=== PATIENT | female | born 1995 | race Caucasian/White ===

== ENCOUNTER → 2021-07-16 10:14 | Outpatient (CLI) | payer OTHER, SELFPAY ==
[2021-07-16 10:43] LABS: COVID19 -Nasal RAPID Negative (Negative)
== END ==
PROVIDERS: Referring Provider Obstetrics & Gynecology; Visit Provider Obstetrics & Gynecology
DX: Z01.812 Encounter for preprocedural laboratory examination (principal); Z20.822 Contact with and (suspected) exposure to COVID-19
CPT/HCPCS: 87635

== ENCOUNTER 2021-07-17 10:29 | Day surgery (SDC) | payer OTHER, SELFPAY ==
[2021-07-13 08:44] VITALS: BMI 27.3
--- NOTE | 2021-07-17 | PATH_ITS ---
[facility] Accession Number: [id number] . 01 Material submitted: . vulva - LEFT BARTHOLIN'S CYST . 01 Diagnosis: Left Bartholin Cyst, Excision: Histologic features consistent with benign Bartholin duct cyst. No malignancy identified. MRV 07/23/2021 1359 Local . 01 Electronically signed: . Catina Monterroso MD, Pathologist NPI- [id number] . 01 Gross description: . LEFT BARTHOLIN'S CYST: Received in formalin is 1 fragment of davis soft tissue measuring 3.0 x 1.2 x 0.6 cm. Tissue is inked. Specimen is sectioned and submitted in surgical device sales representative sections in 1 cassette. /MUNA 07/19/2021 1950 Local . 01 Pathologist provided ICD-10: N75.0 . 01 CPT . 581742 Specimen Comment: A courtesy copy of this report has been sent to [phone] Performed at: 01 [facility] [address] [place] [address] Suite [facility], [place], [place] [id number] MD Duncan Foss MD Phone: [phone]
[2021-07-17 10:48] VITALS: BP 106/64; PULSE 82; RESP 20; TEMP 36.7; O2SAT 98; BMI 27.3
[2021-07-17] MEDS: LACTATED RINGERS 1,000 ML 42 ML IV (11:02)
--- NOTE | 2021-07-17 11:02 | SUR.PREOP ---
Advised patient that surgery delayed by approximately one hour due to unforeseen circumstances. V/U. No needs voiced at this time; call light in place. Lights turned down for comfort.
--- NOTE | 2021-07-17 13:05 | PM.HP.1 ---
History of Present Illness History of Present Illness Date Patient Seen: 07/17/21 Time Patient Seen: 13:10 Chief complaint: SDC Narrative: Patient is a 25-year-old 0 with recurrent left Bartholin's cyst/abscess. She is here for a left Bartholin's cyst excision. Patient History Medical History Former smoker Family & Social History Social History: household members family,friend(s) Tobacco & Substance use: Tobacco type e-cigarettes Smoking Status Former smoker alcohol intake frequency holiday/special occasion Substance Use Type does not use Meds Home Medications and Allergies Home Medications Medication Instructions Recorded Confirmed Type cetirizine 10 mg capsule (Zyrtec) 10 mg PO DAILY PRN 06/11/21 07/17/21 History fluticasone propionate 50 2 spray INTRANASAL DAILY 06/11/21 07/17/21 History mcg/actuation nasal spray,suspension (Flonase Allergy Relief) montelukast 10 mg tablet 10 mg PO .weekly PRN tab 06/11/21 07/17/21 History (Singulair) Allergies Allergy/AdvReac Type Severity Reaction Status Date / Time No Known Drug Allergies Allergy Verified 07/17/21 09:39 Exam Vital Signs (past 8 hours): - 07/17/21 10:48 Temperature 98.1 F Pulse Rate 82 Respiratory Rate 20 Blood Pressure 106/64 Pulse Oximetry 98 Oxygen Delivery Method Room Air Narrative Exam Narrative: HEENT: No thyromegaly, no anterior cervical or supraclavicular lymphadenopathy. Lungs:Clear to auscultation bilaterally, no wheezes. Cardiovascular: Regular rate and rhythm, no murmurs, rubs, or gallops. Abdomen: No scars. No hepatosplenomegaly. No masses palpable. External genitalia: 2 cm x 2 cm left Bartholin's gland cyst Vagina: Normal Cervix: Normal Bimanual exam: 6 Week size uterus. Mobile. Assessment & Plan Assessment & Plan narrative: Assessment: 25-year-old 0 with recurrent left Bartholin's gland cyst/abscess Currently just a cyst Plan: Excision of left Bartholin's gland cyst The risks, benefits, and alternatives to the procedure were explained to the patient. The risks including bleeding and infection. She understands these risks and agrees to proceed. A full par Q was held and consent form was signed. COVID-19 COVID-19 status: Negative Result date/Date tested (Pos, Neg/Pending): 07/16/21 Time Spent With Patient Time with patient: less than 30 minutes Critical Care time: I spent a total of [] minutes of critical care time on this patient's care today; this time is exclusive of procedural time.
--- NOTE | 2021-07-17 13:15 | PM.PREOP ---
Pre-operative Note COVID-19 COVID-19 status: Negative Result date/Date tested (Pos, Neg/Pending): 07/16/21 Criteria for continued procedure: Delay expected to result in less-positive ultimate med/surg outcome Interval Note History & Physical reviewed/Exam performed by Physician: Yes Changes to H&P: No H&P completed within 30 days and has changed as indicated here:: 07/17/21
--- NOTE | 2021-07-17 13:29 | SUR.OPER ---
Lithotomy on padded OR bed, head on pillow, arms secured on padded arm boards at <90 degrees abduction. Legs secured in padded yellow fins stirrups.
[2021-07-17] MEDS: CEFAZOLIN 2 GM/20 ML SYRINGE IV (13:37)
--- NOTE | 2021-07-17 13:41 | SUR.OPER ---
Lithotomy on padded OR bed, head on pillow, arms secured on padded arm boards at <90 degrees abduction. Legs secured in padded yellow fins stirrups.
[2021-07-17] MEDS: BUPIVACAINE 0.5% (PF) 30 ML, EPINEPHrine 0.15 MG INJ (13:43)
--- NOTE | 2021-07-17 14:17 | PM.GYNOP.1 ---
Operative Date/Time/Diagnoses Date of procedure: 07/17/21 Time of procedure: 14:17 Pre-op diagnosis: Left Bartholin's gland cyst, recurrent Post-op diagnosis: same Procedure & Clinicians Procedure: Procedures Operation Date: 07/17/21 11:45 Actual Procedure Side Surgeon p Excision of Bartholin's Gland Cyst Left Rekha Schmid MD Indications: Recurrent left Bartholin's gland cyst/abscess Surgeon: Rekha Schmid [employer] Job Titles: [employer] Anesthesia Type: General (LMA) and Local Operative Notes Findings: 3 cm x 2 cm left Bartholin's gland cyst Closure Type: primary Specimen(s): other (Left Bartholins gland cyst wall) Estimated blood loss (mL): 5 Blood products transfused: none Procedure in detail: After informed consent was obtained, the patient was taken to the operating room where she was placed in the dorsal supine position. After adequate LMA general anesthesia was achieved, she was placed in the dorsal lithotomy position, and prepped and draped in the usual sterile fashion. A time-out was performed. 8 cc of 0.25% Marcaine with epinephrine were injected under the skin above Bartholin's gland cyst. A 2 cm incision was made. This was carried down to the layer of the cyst. Upon grasping around the cyst the cyst ruptured and there was old blood. The cyst wall was grasped with Allis clamps. This was dissected out sharply and with the Bovie. Once the entire cyst wall was removed. The cavity was irrigated with warm normal saline. There was some bleeding noted from the superior aspect of the deep wound. A [id number] suture with 2 0 Vicryl was placed for hemostasis. A second layer of 3 simple interrupted sutures with 2-0 Vicryl were placed to reapproximate and close the cavity. The skin was closed with 3-0 chromic with simple interrupted sutures. Hemostasis was achieved. Four additional cc of 0.25% Marcaine with epinephrine were injected around the incision. Sponge, lap, and instrument counts were correct x2. The patient tolerated the procedure well, and was taken to PACU in stable condition. Complications: none Post-operative Condition: stable Disposition: PACU Plan for aftercare: Home after recovery
[2021-07-17 14:18] VITALS: BP 113/61; PULSE 71; RESP 12; TEMP 36.3; O2SAT 96
[2021-07-17 14:23] VITALS: BP 116/63; PULSE 74; RESP 16; O2SAT 97
[2021-07-17 14:28] VITALS: BP 95/47; PULSE 105; RESP 18; O2SAT 97
[2021-07-17 14:32] VITALS: BP 111/65; PULSE 94; RESP 18; O2SAT 98
[2021-07-17 14:37] VITALS: BP 115/67; PULSE 90; RESP 12; O2SAT 98
[2021-07-17] MEDS: HYDROCODONE/ACET 5/325 TABLET 1 TAB PO (14:42)
== END 2021-07-17 14:59 | disposition home or self-care (01) ==
PROVIDERS: PCP Physician Assistant; Referring Provider Obstetrics & Gynecology; Visit Provider Obstetrics & Gynecology
PROC: (CPT 56440; principal; 2021-07-17 11:45)
DX: N75.0 Cyst of Bartholin's gland (principal)
CPT/HCPCS: 56740; 81025; J0171; J0690; J1100; J1885; J2704; J3010